=== PATIENT | female | born 1950 | race Caucasian/White ===

== ENCOUNTER 2017-04-07 05:36 | Day surgery (SDC) | payer MEDICARE, OTHER ==
[2017-04-04 10:14] LABS: HEMATOCRIT 41.8 % (36.0-48.0)
[2017-04-04 10:30] LABS: BUN (BLOOD UREA NITROGEN) 7 MG/DL (6-23); CALCIUM, SERUM 9.2 MG/DL (8.5-10.4); CHLORIDE, SERUM 113 MMOL/L (96-112); CO2 (CARBON DIOXIDE) 28 MMOL/L (24-34); CREATININE 0.78 MG/DL (0.55-1.02); GFR AFRICAN AMERICAN 92 ML/MIN (>=60); GFR NON AFRICAN AMERICAN 79 ML/MIN (>=60); GLUCOSE, SERUM 91 MG/DL (60-99); POTASSIUM, SERUM 4.5 MMOL/L (3.5-5.3); SODIUM, SERUM 146 MMOL/L (135-148)
--- NOTE | ~2017-04-07 | OP ---
Record Of Operation [facility] [address] [place]. [address] NAME: KAREN CARDENAS : 50 STATUS : [facility] PAT#: [id number] AGE: 66 ADM/REG DATE : 04/07/17 MR#: [id number] REPORT SERV DATE: 04/07/17 DICTATED BY: MIKE GANDHI DATE: 04/07/17 REPORT STATUS : Draft TRANSCRIBED BY: MODObi DATE: 04/07/17 DATE OF PROCEDURE: 04/07/2017 PREOPERATIVE DIAGNOSIS: Herniated nucleus pulposus, left C5-6 with intractable radiculopathy. POSTOPERATIVE DIAGNOSIS: Herniated nucleus pulposus, left C5-6 with intractable radiculopathy. PROCEDURE: 1. Microscopic and navigation assisted surgery. 2. Anterior cervical diskectomy, foraminotomy, C5-6. 3. Implantation prestige LP disk arthroplasty, C5-6. SURGEON: Mike Gandhi D.O. ANCIENT ART CURATOR: Walker Gan. ANESTHESIA: General. BLOOD LOSS: 30 mL. INDICATIONS FOR SURGERY: A 66-year-old female with severe neck, shoulder, and left arm pain with weakness in her left wrist. The wrist extensors in particular with loss of the brachioradialis reflex and obvious C6 radiculopathy. Plain x-rays revealed mild degrees of spondylosis, only at C5-6. The rest of her spine looked to appear completely normal despite her age. MRI showed disk herniation with impingement on the left. She is brought to surgery having failed usual conservative care for the above procedure. Prior to surgery. We offered the options of arthroplasty versus fusion. Even despite her age, she has very good maintenance of lordosis, there is no significant collapse of the disk spaces or instability patterns, there is no deformity, and the facet joints do not appear bad or severely arthritic. For this reason, she has chosen to proceed with arthroplasty. Prior to surgery, risks, benefits, alternatives, and expectations have been explained including everything up to and including quadriplegia or even . There could be an infection. There could be injury to the midline structures including thyroid, trachea, esophagus, or the spinal cord itself. Vertebral or carotid arteries or the vascular structures could be injured with massive blood loss or exsanguination. Always a risk of injury to the recurrent laryngeal nerves with hoarseness or change in voice that could be chronic and persistent chronic dysphagia. Medical complications such as UTI, PE, pneumonia, [place], CVA, etcetera were explained. Consent form has been signed. DESCRIPTION OF PROCEDURE: Antibiotic prophylaxis was given. Neurophysiology monitoring leads inserted. The patient was brought to the operative suite. General anesthetic including endotracheal intubation was administered. The patient was in a supine position and the neck in a neutral alignment, a small bolster was placed behind the shoulders. The scalp was painted with Betadine solution. [place] three-point fixation attached to the Record Of Operation [facility] [address] [place]. [address] NAME: KAREN CARDENAS : 50 STATUS : REG [facility] PAT#: [id number] AGE: 66 ADM/REG DATE : 04/07/17 MR#: [id number] REPORT SERV DATE: 04/07/17 DICTATED BY: MIKE GANDHI DATE: 04/07/17 REPORT STATUS : Draft TRANSCRIBED BY: MODL DATE: 04/07/17 skull using 60 pounds of torque in standard position. [place] was attached to the [facility]. The [employer] navigational registration frame attached to the [place]. Isolation drapes were placed. The neck was scrubbed with Hibiclens solution. DuraPrep was painted. Sterile drapes applied. At intraoperative CT scan with O-arm obtained, CT information used to register the navigational system. With navigational assistance, I identified the C5-6 level. Parallel with the disk space on the left side, a 2.5 cm Bauñelos-Griggs incision was carried out. The platysma muscle was incised in line with the skin incision. The superficial layer of the deep cervical fascia was released along the anterior border of the sternocleidomastoid. Blunt dissection was carried out to the retropharyngeal space where the longus coli muscles were subperiosteally elevated. Retractors were placed. The microscope was sterilely draped and used throughout the remainder of the procedure. We re-identified the correct level of surgery intraoperatively. I used navigational assistance to place a midline [place] distractor pins inferiorly at C6, superiorly at C5. We then released the anterior longitudinal ligament. The diskectomy was carried out with curettes and rongeurs. The endplate cartilage was removed. As we dissected from anterior to posterior, we gently widened the disk space with intradiscal distractors. Posteriorly, the posterior longitudinal ligament was completely taken down. The disk herniation in the epidural space on the left side was completely debrided and the nerve completely freed of any compression. The wounds were irrigated. We then used intraoperative C-arm and under live C-arm, we chose the appropriate height and depth, we chose a 6 mm in height and the appropriate depth was 16 mm. We then placed the drill guide. We drilled the four holes, placed the rail guide and cut the rail troughs. This was followed by implantation of the permanent device. After final implantation, wounds were irrigated. Final AP and lateral x- rays taken showing excellent position. Afterwards, no bleeding was noted. No drain was needed. The platysma was closed with a running 3-0 Vicryl suture. The subcutaneous tissue was closed with 3-0 Vicryl suture. Subcuticular 4-0 PDS was used for skin closure. Sterile dressings applied. The patient awakened, extubated, taken to recovery room in satisfactory condition having tolerated procedure well. Sponge, needle, and instrument counts were correct. No intraoperative complications noted. /SEBASTIAN Mike Gandhi D.O. / [id number] CC: Record Of Operation [address] [address] NAME: KAREN CARDENAS : 50 STATUS : REG [facility]#: [id number] AGE: 66 ADM/REG DATE : 04/07/17 MR#: [id number] REPORT SERV DATE: 04/07/17 DICTATED BY: MIKE GANDHI DATE: 04/07/17 REPORT STATUS : Draft TRANSCRIBED BY: MODL DATE: 04/07/17 Ismael Lynn M.D.
[~2017-04-07 05:36] MED LIST: ALEVE220 MG PO; ALSUMA6 MG/0.5 M SQ; ASAB PO; ATV.5 PO; BENICAR5 PO; CELEXA20 PO; CRESTOR20 MG PO; FISH OIL300 MG PO; FLONASE NAS; HARD NAILS PO; IMITSPRY20 NAS; LIOR10 PO; NEUR100 PO; PR12.5 PO; [UNRECOGNIZED DRUG - CODE] SC
== END 2017-04-07 18:10 | disposition home or self-care (01) ==
LOC: SDC 05:36
PROVIDERS: Orthopaedic Surgery Orthopaedic Surgery of the Spine
PROC: 0RR30JZ Replacement of Cervical Vertebral Disc with Synthetic Substitute, Open Approach (ICD-10-PCS; principal; 2017-04-07 06:45)
DX: M50.122 Cervical disc disorder at C5-C6 level with radiculopathy (principal); I25.10 Atherosclerotic heart disease of native coronary artery without angina pectoris; E78.5 Hyperlipidemia, unspecified; E78.00 Pure hypercholesterolemia, unspecified; F32.9 Major depressive disorder, single episode, unspecified; G43.909 Migraine, unspecified, not intractable, without status migrainosus; F17.210 Nicotine dependence, cigarettes, uncomplicated; Z86.711 Personal history of pulmonary embolism; Z88.5 Allergy status to narcotic agent; Z79.82 Long term (current) use of aspirin; Z79.51 Long term (current) use of inhaled steroids; Z79.899 Other long term (current) drug therapy; Z91.040 Latex allergy status; Z90.710 Acquired absence of both cervix and uterus; Z98.890 Other specified postprocedural states
CPT/HCPCS: 80048; 85014; 85018; 87641; 88304; 93005; A9270-GY; C1713; J0690; J2250; J2405; J2710; J3010